=== PATIENT | female | born 1945 | race Two or more races ===

== ENCOUNTER 2021-10-20 05:55 | Day surgery (SDC) | payer OTHER ==
[~2021-10-20 05:55] MED LIST: CLARITIN10 M1 PO; LEVOTHYROXINE25 MCG PO; LOSARTAN POTAS100 MG PO; NABUMETONE500 MG PO; PANTOPRAZOLE SO40 M2 PO; ROSUVASTATIN CA10 MG PO; TORSEMIDE5 MG PO
[2021-10-20] MEDS ORDERED: ULTRACET PO (08:57)
== END 2021-10-20 13:00 | disposition home or self-care (01) ==
LOC: CIR.AMB 05:55
PROVIDERS: ATTEND Surgery
DX: C50.012 Malignant neoplasm of nipple and areola, left female breast (principal); Z20.822 Contact with and (suspected) exposure to COVID-19
CPT/HCPCS: 36561; C1751

== ENCOUNTER 2022-01-08 06:17 | Day surgery (SDC) | payer OTHER ==
[~2022-01-08 06:17] MED LIST changes: +AMLODIPI PO; +ANASTRAZOLE PO; +ULTRACET PO
== END 2022-01-08 13:30 | disposition home or self-care (01) ==
LOC: CIR.AMB 06:17
PROVIDERS: ATTEND Surgery
DX: C50.912 Malignant neoplasm of unspecified site of left female breast (principal); R59.1 Generalized enlarged lymph nodes; I10 Essential (primary) hypertension; E78.5 Hyperlipidemia, unspecified; J45.909 Unspecified asthma, uncomplicated; Z85.038 Personal history of other malignant neoplasm of large intestine; E03.9 Hypothyroidism, unspecified; Z20.822 Contact with and (suspected) exposure to COVID-19